=== PATIENT | male | born 1955 ===

== ENCOUNTER 2017-02-01 07:12 | Day surgery (SDC) | payer OTHER ==
[2017-02-01 07:30] VITALS: BMI 24.2
[2017-02-01] MEDS ORDERED: Propofol 10 mg/ml Inj (20 ML) ONE ×2 (09:12)
[2017-02-01] MEDS ORDERED: Lactated Ringer's 500 ML IV SCH (09:30)
[2017-02-01 09:50] VITALS: TEMP 97.7
[2017-02-01 10:01] VITALS: RESP 15
[2017-02-01 10:40] VITALS: BP 126/72; PULSE 76; O2SAT 98
== END 2017-02-01 10:37 | disposition home or self-care (01) ==
LOC: C.ENDO 07:12
PROVIDERS: ATTEND Internal Medicine
DX: D12.3 Benign neoplasm of transverse colon (principal); K64.8 Other hemorrhoids
CPT/HCPCS: 45385; 82948; 88305; J2704; J3010; J7120